=== PATIENT | female | born 1985 | race Caucasian/White ===

== ENCOUNTER 2018-08-19 05:39 | Day surgery (SDC) | payer MEDICAID ==
[2018-08-19 06:59] LABS: ADD MAN DIFF? NO
[2018-08-19] MEDS ORDERED: LACTATED RINGER'S 1,000 ML IV (07:00)
[2018-08-19] MEDS ORDERED: SEVOFLURANE 15 MIN (07:00)
[2018-08-19 07:03] LABS: BASOPHILS % 0.4 % (0.0-2.0); EOSINOPHILS # 0.1 10^3/ul (0.0-0.5); HEMOGLOBIN 14.5 g/dl (12.0-16.0); LYMPHOCYTES % 28.8 % (15.0-51.0); MEAN CORPUSCULAR HEMOGLOBIN 27.9 pg (29.0-33.0); MEAN CORPUSCULAR VOLUME 84.8 fl (82.0-101.0); MEAN PLATELET VOLUME 9.2 fl (7.4-10.4); MONOCYTE # 0.6 10^3/ul (0.3-0.9); NEUTROPHIL # 4.2 10^3/ul (1.6-7.5); NEUTROPHILS % 60.5 % (39.0-77.0); PLATELET COUNT 368 10^3/UL (140-415); RED BLOOD COUNT 5.19 10^6/ul (4.20-5.40); RED CELL DISTRIBUTION WIDTH 13.2 % (11.5-14.5)
[2018-08-19] MEDS ORDERED: MIDAZOLAM 1 MG/ML 2 ML INJ (07:44)
[2018-08-19] MEDS ORDERED: FENTAnyl 50 MCG/ML VIAL (07:45)
[2018-08-19] MEDS ORDERED: LIDOCAINE 2% (SDV) 5 ML INJ (08:39)
[2018-08-19] MEDS ORDERED: NEOSTIGMINE 3 MG/3 ML SYRINGE (08:39)
[2018-08-19] MEDS ORDERED: GLYCOPYRROLATE 0.4 MG INJ (08:39)
[2018-08-19] MEDS ORDERED: ROCURONIUM 50 MG INJ (08:39)
[2018-08-19] MEDS ORDERED: PROPOFOL 20 ML (08:39)
[2018-08-19] MEDS ORDERED: KETOROLAC 30 MG INJ (08:40)
[2018-08-19] MEDS ORDERED: ONDANSETRON 4 MG INJ (08:40)
[2018-08-19] MEDS ORDERED: CEFAZOLIN 1 GM INJ (08:47)
[2018-08-19] MEDS: BUPIVACAINE 0.25% (MPF) 30 ML INJ (08:55)
[2018-08-19] MEDS ORDERED: ONDANSETRON 4 MG INJ IV (09:00)
[2018-08-19] MEDS ORDERED: HYDROmorphONE 1 MG/5 ML IV SYRINGE IV ×2 (09:00)
[2018-08-19] MEDS ORDERED: FENTAnyl 50 MCG/ML VIAL IV (09:00)
[2018-08-19] MEDS ORDERED: DIPHENHYDRAMINE 50 MG INJ IV (09:00)
[2018-08-19] MEDS ORDERED: METOCLOPRAMIDE 10 MG INJ IV (09:00)
[2018-08-19] MEDS ORDERED: MEPERIDINE 25 MG INJ IV (09:00)
== END 2018-08-19 10:50 | disposition home or self-care (01) ==
LOC: SDS 05:39
DX: Z30.2 Encounter for sterilization (principal); E66.01 Morbid (severe) obesity due to excess calories; Z68.41 Body mass index [BMI] 40.0-44.9, adult
CPT/HCPCS: 58670; 85025; 86850; 86900; 86901